=== PATIENT | male | born 1945 | race Caucasian/White ===

== ENCOUNTER 2020-02-17 11:09 | Outpatient (CLI) | payer MEDICARE, BC, SELFPAY ==
[2020-02-17 12:09] LABS: Hematocrit 48.8 % (42.0-52.0); Mean Corpuscular HGB Conc 32.8 g/dl (32-36); Mean Corpuscular Hemoglobin 31.4 pg (26-34); Mean Corpuscular Volume 95.7 fl (80-100); Mean Platelet Volume 10.9 fl (7.4-10.4); Platelet Count Result 201 k/mm3 (150-375); Red Cell Distribution Width 14.6 % (11.5-14.5); White Blood Count 6.6 K/mm3 (4.5-10.0)
[2020-02-17 12:20] LABS: Anion Gap 12.2 mmol/L (7-16); Blood Urea Nitrogen 25 mg/dL (9-20); Calcium 9.5 mg/dL (8.4-10.2); Carbon Dioxide 28 mmol/L (22-30); Chloride 103 mmol/L (98-107); Estimated Glomerular Filt Rate 49; Glucose 126 mg/dL (75-110); Potassium 4.2 mmol/L (3.4-5.0); Sodium 139 mmol/L (137-145)
== END 2020-02-17 11:10 | disposition home or self-care (01) ==
PROVIDERS: PCP Family Medicine; Visit Provider Nurse Practitioner Family
DX: R19.7 Diarrhea, unspecified (principal)
CPT/HCPCS: 36415; 80048; 85027

== ENCOUNTER 2020-08-16 16:21 | Outpatient (CLI) | payer MEDICARE, BC, SELFPAY ==
[2020-08-16 17:17] LABS: Creatinine Urine 48.1 mg/dL
[2020-08-16 17:22] LABS: Microalbumin Urine Random 55.3 mg/L (0-16.7)
== END 2020-08-16 16:22 | disposition home or self-care (01) ==
LOC: ANHLAB 16:25
PROVIDERS: Family Provider Family Medicine; PCP Family Medicine; Visit Provider Internal Medicine Endocrinology, Diabetes & Metabolism
DX: E11.59 Type 2 diabetes mellitus with other circulatory complications (principal); I10 Essential (primary) hypertension
CPT/HCPCS: 82043

== ENCOUNTER 2021-07-29 16:08 | Outpatient (CLI) | payer MEDICARE, BC, SELFPAY ==
[2021-07-29 17:05] LABS: Basophils Percent Auto 0.5 % (0.2-1.2); Eosinophils Absolute Auto 0.1 K/mm3 (0-0.3); Eosinophils Percent Auto 1.7 % (0-4.4); Hematocrit 49.1 % (42.0-52.0); Hemoglobin 16.1 g/dL (14.0-18.0); Immature Granulocyte Absolute 0.03 K/mm3 (0.00-0.031); Immature Granulocyte Percent A 0.4 % (0-0.5); Lymphocytes Percent Auto 11.6 % (18.3-44.2); Mean Corpuscular HGB Conc 32.8 g/dl (32-36); Mean Corpuscular Hemoglobin 31.3 pg (26-34); Mean Corpuscular Volume 95.5 fl (80-100); Mean Platelet Volume 11.3 fl (7.4-10.4); Monocytes Absolute Auto 0.7 K/mm3 (0.1-0.6); Monocytes Percent Auto 9.3 % (2.6-8.5); Neutrophils Absolute Auto 5.9 K/mm3 (1.3-6.7); Neutrophils Percent Auto 76.5 % (45.5-73.1); Platelet Count Result 192 k/mm3 (150-375); Red Blood Count 5.14 M/mm3 (4.6-6.20); Red Cell Distribution Width 14.2 % (11.5-14.5); White Blood Count 7.7 K/mm3 (4.5-10.0)
[2021-07-29 17:18] LABS: Anion Gap 11 mmol/L (8-16); Blood Urea Nitrogen 30 mg/dL (9-20); Calcium 9.4 mg/dL (8.4-10.2); Carbon Dioxide 24 mmol/L (22-30); Chloride 104 mmol/L (98-107); Estimated Glomerular Filt Rate 49; Glucose 143 mg/dL (65-110); Potassium 4.3 mmol/L (3.4-5.0); Sodium 139 mmol/L (137-145)
[2021-07-29 17:25] LABS: NT Pro B Type Natriuretic Pept 1180 pg/mL (5-100)
== END 2021-07-29 16:09 | disposition home or self-care (01) ==
PROVIDERS: PCP Family Medicine
DX: I48.91 Unspecified atrial fibrillation (principal); I44.2 Atrioventricular block, complete; R94.2 Abnormal results of pulmonary function studies; I48.92 Unspecified atrial flutter; I87.2 Venous insufficiency (chronic) (peripheral); R20.0 Anesthesia of skin; I70.213 Atherosclerosis of native arteries of extremities with intermittent claudication, bilateral legs; I49.3 Ventricular premature depolarization; E87.5 Hyperkalemia; I25.5 Ischemic cardiomyopathy; E61.1 Iron deficiency; I47.2 Ventricular tachycardia; R80.9 Proteinuria, unspecified; Z95.1 Presence of aortocoronary bypass graft; I49.01 Ventricular fibrillation; I34.0 Nonrheumatic mitral (valve) insufficiency; Z87.891 Personal history of nicotine dependence; R06.02 Shortness of breath; J44.9 Chronic obstructive pulmonary disease, unspecified; K52.1 Toxic gastroenteritis and colitis; I50.9 Heart failure, unspecified; Z95.810 Presence of automatic (implantable) cardiac defibrillator; G47.33 Obstructive sleep apnea (adult) (pediatric); E66.9 Obesity, unspecified; E78.2 Mixed hyperlipidemia; I10 Essential (primary) hypertension; I25.10 Atherosclerotic heart disease of native coronary artery without angina pectoris
CPT/HCPCS: 36415; 80048; 83880; 85025

== ENCOUNTER 2021-12-27 13:31 | Outpatient (CLI) | payer MEDICARE, BC, SELFPAY ==
[2021-12-27 15:16] LABS: Anion Gap 7 mmol/L (8-16); Blood Urea Nitrogen 30 mg/dL (9-20); Calcium 8.8 mg/dL (8.4-10.2); Carbon Dioxide 29 mmol/L (22-30); Chloride 102 mmol/L (98-107); Estimated Glomerular Filt Rate 45; Glucose 204 mg/dL (65-110); Potassium 4.6 mmol/L (3.4-5.0); Sodium 138 mmol/L (137-145)
[2021-12-27 15:24] LABS: NT Pro B Type Natriuretic Pept 1440 pg/mL (5-100)
== END 2021-12-27 13:32 | disposition home or self-care (01) ==
LOC: ANHLAB 13:38
PROVIDERS: PCP Family Medicine
DX: E87.5 Hyperkalemia (principal); R06.02 Shortness of breath; I50.9 Heart failure, unspecified; I25.10 Atherosclerotic heart disease of native coronary artery without angina pectoris
CPT/HCPCS: 36415; 80048; 83880

== ENCOUNTER 2022-07-24 11:15 | Outpatient (CLI) | payer MEDICARE, BC, SELFPAY ==
[2022-07-24 13:45] LABS: Basophils Percent Auto 0.3 % (0.2-1.2); Eosinophils Absolute Auto 0.1 K/mm3 (0-0.3); Eosinophils Percent Auto 1.6 % (0-4.4); Hematocrit 47.2 % (42.0-52.0); Hemoglobin 15.6 g/dL (14.0-18.0); Immature Granulocyte Absolute 0.03 K/mm3 (0.00-0.031); Immature Granulocyte Percent A 0.4 % (0-0.5); Lymphocytes Absolute Auto 0.91 K/mm3 (0.9-3.2); Lymphocytes Percent Auto 12.3 % (18.3-44.2); Mean Corpuscular HGB Conc 33.1 g/dl (32-36); Mean Corpuscular Hemoglobin 30.9 pg (26-34); Mean Corpuscular Volume 93.5 fl (80-100); Mean Platelet Volume 11.4 fl (7.4-10.4); Monocytes Absolute Auto 0.7 K/mm3 (0.1-0.6); Neutrophils Absolute Auto 5.6 K/mm3 (1.3-6.7); Neutrophils Percent Auto 76.4 % (45.5-73.1); Platelet Count Result 185 k/mm3 (150-375); Red Blood Count 5.05 M/mm3 (4.6-6.20); Red Cell Distribution Width 14.3 % (11.5-14.5); White Blood Count 7.4 K/mm3 (4.5-10.0)
[2022-07-24 13:56] LABS: INR 1.2
[2022-07-24 14:01] LABS: Alanine Aminotransferase 30 U/L (6-50); Albumin Level 4.3 g/dL (3.5-5.1); Alkaline Phosphatase 129 U/L (38-126); Anion Gap 8 mmol/L (8-16); Aspartate Amino Transferase 23 U/L (17-59); Bilirubin,Total 0.8 mg/dL (0.2-1.3); Blood Urea Nitrogen 22 mg/dL (9-20); Calcium 8.7 mg/dL (8.4-10.2); Carbon Dioxide 27 mmol/L (22-30); Chloride 103 mmol/L (98-107); Estimated Glomerular Filt Rate 49; Glucose 177 mg/dL (65-110); Potassium 3.5 mmol/L (3.4-5.0); Sodium 138 mmol/L (137-145)
[2022-07-24 14:05] LABS: Add Urine Microscopic? YES; Appearance Urine Clear (Clear); Bilirubin Urine Negative (Negative); Blood Urine Negative (Negative); Color Urine Yellow (Yellow); Glucose Urine UA 3+ mg/dL (Negative); Ketones Urine Negative (Negative); Leukocyte Esterase Ur Negative LEU/UL (Negative); Nitrate Urine Negative (Negative); Protein Urine Negative (Negative); Specific Grav Ur 1.015 (1.001-1.035)
[2022-07-24 14:25] LABS: WBC Urine 0-3 /hpf
== END 2022-07-24 11:16 | disposition home or self-care (01) ==
PROVIDERS: PCP Family Medicine
DX: I48.92 Unspecified atrial flutter (principal); I49.3 Ventricular premature depolarization; E87.5 Hyperkalemia; I25.5 Ischemic cardiomyopathy; I48.91 Unspecified atrial fibrillation
CPT/HCPCS: 36415; 80053; 81001; 85025; 85610; 85730

== ENCOUNTER 2022-09-05 13:51 | Outpatient (CLI) | payer MEDICARE, BC, SELFPAY ==
[2022-09-05 15:32] LABS: Anion Gap 6 mmol/L (8-16); Blood Urea Nitrogen 24 mg/dL (9-20); Carbon Dioxide 32 mmol/L (22-30); Chloride 103 mmol/L (98-107); Estimated Glomerular Filt Rate 59; Glucose 91 mg/dL (65-110); Potassium 3.5 mmol/L (3.4-5.0); Sodium 141 mmol/L (137-145)
[2022-09-05 15:38] LABS: NT Pro B Type Natriuretic Pept 2720 pg/mL (19.9-100)
== END 2022-09-05 13:52 | disposition home or self-care (01) ==
PROVIDERS: PCP Family Medicine; Visit Provider Internal Medicine Cardiovascular Disease
DX: I48.92 Unspecified atrial flutter (principal); I44.2 Atrioventricular block, complete; R94.2 Abnormal results of pulmonary function studies; I87.2 Venous insufficiency (chronic) (peripheral); R20.0 Anesthesia of skin; I70.213 Atherosclerosis of native arteries of extremities with intermittent claudication, bilateral legs; I49.3 Ventricular premature depolarization; E87.5 Hyperkalemia; I25.5 Ischemic cardiomyopathy; E61.1 Iron deficiency; I47.20 Ventricular tachycardia, unspecified; R80.9 Proteinuria, unspecified; Z95.1 Presence of aortocoronary bypass graft; I49.01 Ventricular fibrillation; I34.0 Nonrheumatic mitral (valve) insufficiency; Z87.891 Personal history of nicotine dependence; R06.02 Shortness of breath; J44.9 Chronic obstructive pulmonary disease, unspecified; I48.91 Unspecified atrial fibrillation; K52.1 Toxic gastroenteritis and colitis; Z95.810 Presence of automatic (implantable) cardiac defibrillator; G47.33 Obstructive sleep apnea (adult) (pediatric); E66.9 Obesity, unspecified; E11.9 Type 2 diabetes mellitus without complications; E78.2 Mixed hyperlipidemia; I10 Essential (primary) hypertension; I25.10 Atherosclerotic heart disease of native coronary artery without angina pectoris
CPT/HCPCS: 36415; 80048; 83880

== ENCOUNTER 2022-11-12 09:28 | Outpatient (CLI) | payer MEDICARE, BC, SELFPAY ==
[2022-11-12 19:30] LABS: Creatinine Urine 106.3 mg/dL
[2022-11-12 19:34] LABS: MALB Creatinine Ratio 126.9 mg/g (0-30); Microalbumin Urine Random 134.9 mg/L (0-16.7)
[2022-11-12 20:42] LABS: Alanine Aminotransferase 40 U/L (6-50); Albumin Level 4.7 g/dL (3.5-5.1); Alkaline Phosphatase 155 U/L (38-126); Anion Gap 15 mmol/L (8-16); Aspartate Amino Transferase 25 U/L (17-59); Bilirubin,Total 0.8 mg/dL (0.2-1.3); Blood Urea Nitrogen 29 mg/dL (9-20); Calcium 9.4 mg/dL (8.4-10.2); Carbon Dioxide 24 mmol/L (22-30); Chloride 106 mmol/L (98-107); Cholesterol 130 mg/dL (0-200); Estimated Glomerular Filt Rate 53; Glucose 188 mg/dL (65-110); HDL Direct 37 mg/dL; Potassium 3.5 mmol/L (3.4-5.0); Sodium 145 mmol/L (137-145); Triglycerides 82 mg/dL (<150)
[2022-11-12 20:53] LABS: LDL Cholesterol Direct 72 mg/dL
== END 2022-11-12 09:29 | disposition home or self-care (01) ==
LOC: ANHGOSHLAB 09:31
PROVIDERS: PCP Family Medicine; Visit Provider Nurse Practitioner Family
DX: E11.65 Type 2 diabetes mellitus with hyperglycemia (principal); E11.59 Type 2 diabetes mellitus with other circulatory complications; I15.2 Hypertension secondary to endocrine disorders; Z79.4 Long term (current) use of insulin; E78.5 Hyperlipidemia, unspecified
CPT/HCPCS: 36415; 80053; 80061; 82043

== ENCOUNTER 2023-08-21 14:48 | Emergency (ER) | payer MEDICARE, BC, SELFPAY ==
--- NOTE | ~2023-08-21 | XR_ITS ---
EXAMINATION: XR chest 2V DATE: 08/21/2023 16:09 INDICATION: Shortness of breath. TECHNIQUE: Frontal and lateral views of the chest were obtained. COMPARISON: Chest single view 05/29/2019 FINDINGS: There is no pneumonia, pleural effusion, or pneumothorax. Cardiomegaly is noted. Median melina rnotomy wires and mediastinal surgical clips are seen, likely from prior coronary artery bypass graft ing. There is a left chest pacer/defibrillator with leads in right atrium and right ventricle. An epi cardial lead is noted. There is mild chronic anterior wedging of multiple vertebral bodies. IMPRESSION: 1. Cardiomegaly. Reviewed, dictated and finalized at location E. ERENCE DIRECTOR IMPRESSION: 1. Cardiomegaly.
[2023-08-21 14:57] VITALS: BP 112/68; PULSE 80; RESP 16; TEMP 36.8; O2SAT 95
--- NOTE | 2023-08-21 15:58 | ED.URI ---
HPI - URI/Sore Throat General Chief Complaint: Upper Respiratory Infection Stated Complaint: Congestion;Short of breath Time Seen by Provider: 08/21/23 15:49 Source: patient, family () and RN notes reviewed Mode of arrival: ambulatory Limitations: no limitations History of Present Illness HPI Narrative: Patient presents today with an 8 day history of cold symptoms to include cough, congestion, shortness of breath. Patient also states that he has gained 3 lb over the last 3 days, that he presumes is fluid. History of CHF, COPD. He has been taking Mucinex and vitamin-C without much relief. He also takes 80 mg of Lasix twice daily for his CHF. Related Data Home Medications Medication Instructions Recorded Confirmed apixaban 2.5 mg tablet (Eliquis) 2.5 mg PO BID 05/29/19 08/21/23 aspirin 81 mg tablet,delayed 81 mg PO DAILY 05/29/19 08/21/23 release (Aspir-) atorvastatin 80 mg tablet 80 mg PO DAILY 05/29/19 08/21/23 carvedilol 12.5 mg tablet 12.5 mg PO BID 05/29/19 08/21/23 clopidogrel 75 mg tablet (Plavix) 75 mg PO DAILY 05/29/19 08/21/23 dapagliflozin propanediol 5 mg 5 mg PO DAILY 05/29/19 08/21/23 tablet (Farxiga) furosemide 40 mg tablet 80 mg PO BID 05/29/19 08/21/23 insulin glargine 100 unit/mL (3 19 unit subcut DAILY 05/29/19 08/21/23 mL) subcutaneous pen (Lantus Solostar U-100 Insulin) ipratropium bromide 17 2 puff inhalation Q8H 05/29/19 08/21/23 mcg/actuation HFA aerosol inhaler (Atrovent HFA) liraglutide 0.6 mg/0.1 mL (18 mg/3 1.8 mg subcut DAILY 05/29/19 08/21/23 mL) subcutaneous pen injector (Victoza 3-Enrique) sacubitril 24 mg-valsartan 26 mg 1 tablet PO BID 05/29/19 08/21/23 tablet (Entresto) spironolactone 25 mg tablet 25 mg PO DAILY 05/29/19 08/21/23 Allergies Allergy/AdvReac Type Severity Reaction Status Date / Time shellfish derived Allergy Intermediate vomitting Verified 08/21/23 15:02 iodine Allergy Unknown Unknown Verified 08/21/23 15:02 Scallop Allergy Mild Unknown Uncoded 08/21/23 15:02 Review of Systems Review of Systems: CONSTITUTIONAL: Denies body aches, fever, chills, or sweats. EYES: Denies visual changes, redness, or discharge. ENT: Denies rhinorrhea, sore throat, or otalgia.+ congestion CARDIOVASCULAR: Denies chest pain, palpitations, or edema. RESPIRATORY:+ cough, shortness of breath GASTROINTESTINAL: Denies abdominal pain, nausea, vomiting, or diarrhea. GENITOURINARY: Denies dysuria or hematuria. SKIN: Denies rash, itching, or wounds. MUSCULOSKELETAL: Denies back pain, joint pain, or myalgia. NEUROLOGIC: Denies headache, numbness, tingling, or weakness. PSYCH: Denies depression or anxiety. [facility] Past Medical History Medical History BMI 33.0-33.9,adult BPH (benign prostatic hyperplasia) CAD (coronary artery disease) Cardiac defibrillator in place CHF (congestive heart failure) COPD (chronic obstructive pulmonary disease) Diabetes mellitus Hemorrhoids HLD (hyperlipidemia) HTN (hypertension) Kidney stones Myocardial infarct Pacemaker Rib fractures Sleep apnea Surgical History Surgical History H/O cardiac catheterization H/O cardiac radiofrequency ablation History of appendectomy History of coronary artery stent placement x4 History of mitral valve repair S/P CABG x 3 Family History Family History Mother Family history of malignant neoplasm Father Family history of diabetes mellitus in first degree relative Family history of coronary artery disease Heart disease Sibling Family history of diabetes mellitus in first degree relative Social History Social History Smoking status: Former smoker Second hand tobacco smoke exposure: Yes Alcohol intake: current Subst
== END 2023-08-21 16:33 | disposition short-term general hospital (02) ==
PROVIDERS: Emergency Provider Nurse Practitioner; PCP Family Medicine
DX: R06.02 Shortness of breath (principal); Z87.891 Personal history of nicotine dependence; N40.0 Benign prostatic hyperplasia without lower urinary tract symptoms; I25.10 Atherosclerotic heart disease of native coronary artery without angina pectoris; I11.0 Hypertensive heart disease with heart failure; I50.9 Heart failure, unspecified; J44.9 Chronic obstructive pulmonary disease, unspecified; E11.9 Type 2 diabetes mellitus without complications; E78.5 Hyperlipidemia, unspecified; I25.2 Old myocardial infarction; Z95.5 Presence of coronary angioplasty implant and graft; Z95.810 Presence of automatic (implantable) cardiac defibrillator
CPT/HCPCS: 71046; 99213; G0463

== ENCOUNTER 2023-08-21 18:23 | Inpatient (IN) | payer MEDICARE, BC, SELFPAY ==
[2023-08-21] VITALS (9 sets, daily range): BP systolic 99–128; BP diastolic 61–79; PULSE 66–84; RESP 17–23; TEMP 36.1–36.9; O2SAT 93–98; BMI 31.1
--- NOTE | 2023-08-21 18:42 | ECG_ITS ---
Measurements Intervals [place] Rate: 75 P: 104 MT: 217 QRS: 152 QRSD: 203 T: 34 QT: 498 QTc: 556 Interpretive Statements ATRIAL SENSE- ELECTRONIC VENTRICULAR PACEMAKER NO FURTHER INTERPRETATION IS POSSIBLE ATYPICAL ECG COMPARED TO ECG 05/29/2019 15:15:26 NO SIGNIFICANT CHANGES Electronically Signed On 08-21-2023 21:13:26 SAP BASIS by Naveed Marinelli D.O.
[2023-08-21 19:05] LABS: Basophils Percent Auto 0.5 % (0.2-1.2); Eosinophils Absolute Auto 0.1 K/mm3 (0-0.3); Hematocrit 47.4 % (42.0-52.0); Immature Granulocyte Absolute 0.01 K/mm3 (0.00-0.031); Immature Granulocyte Percent A 0.2 % (0-0.5); Lymphocytes Absolute Auto 0.98 K/mm3 (0.9-3.2); Lymphocytes Percent Auto 16.4 % (18.3-44.2); Mean Corpuscular HGB Conc 31.6 g/dl (32-36); Mean Corpuscular Hemoglobin 29.8 pg (26-34); Mean Platelet Volume 11.6 fl (7.4-10.4); Monocytes Absolute Auto 0.7 K/mm3 (0.1-0.6); Monocytes Percent Auto 10.9 % (2.6-8.5); Neutrophils Absolute Auto 4.3 K/mm3 (1.3-6.7); Platelet Count Result 145 k/mm3 (150-375); Red Blood Count 5.04 M/mm3 (4.6-6.20); Red Cell Distribution Width 15.6 % (11.5-14.5)
[2023-08-21 19:16] LABS: Alanine Aminotransferase 51 U/L (6-50); Albumin Level 3.8 g/dL (3.5-5.1); Alkaline Phosphatase 147 U/L (38-126); Anion Gap 9 mmol/L (8-16); Aspartate Amino Transferase 41 U/L (17-59); Bilirubin,Total 0.8 mg/dL (0.2-1.3); Blood Urea Nitrogen 35 mg/dL (9-20); Calcium 8.5 mg/dL (8.4-10.2); Carbon Dioxide 26 mmol/L (22-30); Chloride 104 mmol/L (98-107); Estimated CRCL calculation 46 ml/min; Estimated Glomerular Filt Rate 53; Glucose 140 mg/dL (65-110); Potassium 3.3 mmol/L (3.4-5.0); Sodium 139 mmol/L (137-145)
[2023-08-21 19:24] LABS: NT Pro B Type Natriuretic Pept 4430 pg/mL (19.9-100)
[2023-08-21 19:41] LABS: Influenza A QL RT-PCR Positive (Negative); Influenza B QL RT-PCR Negative (Negative); RSV RNA, RT-PCR Negative (Negative); SARS-CoV-2 RNA PCR Negative (Negative)
[2023-08-21 19:54] LABS: Lipase 106 U/L (23-300); Magnesium 2.3 mg/dL (1.6-2.3)
[2023-08-21 20:06] LABS: Partial Thromboplastin Time 39.5 SECONDS (22.3-36.8)
[2023-08-21 20:12] LABS: Procalcitonin 0.1 ng/mL
--- NOTE | 2023-08-21 20:38 | ED.GENADULT ---
HPI - General Adult General Chief complaint: Shortness of Breath/Dyspnea Stated complaint: Shortness of breath Time Seen by Provider: 08/21/23 19:35 History of Present Illness HPI narrative: Patient is a 77-year-old gentleman who presents emergency department with chief complaint of shortness of breath. Patient reports he has been having dyspnea on exertion and reports that he has had increasing peripheral edema reports that he has gained a couple lb of weight over the last several days reports that he has history of congestive heart failure. The patient went to urgent care and was sent to the emergency department for further evaluation. Related Data Home Medications Medication Instructions Recorded Confirmed apixaban 2.5 mg tablet (Eliquis) 2.5 mg PO BID 05/29/19 08/21/23 aspirin 81 mg tablet,delayed 81 mg PO DAILY 05/29/19 08/21/23 release (Aspir-) atorvastatin 80 mg tablet 80 mg PO DAILY 05/29/19 08/21/23 carvedilol 12.5 mg tablet 12.5 mg PO BID 05/29/19 08/21/23 clopidogrel 75 mg tablet (Plavix) 75 mg PO DAILY 05/29/19 08/21/23 dapagliflozin propanediol 5 mg 5 mg PO DAILY 05/29/19 08/21/23 tablet (Farxiga) furosemide 40 mg tablet 80 mg PO BID 05/29/19 08/21/23 insulin glargine 100 unit/mL (3 19 unit subcut DAILY 05/29/19 08/21/23 mL) subcutaneous pen (Lantus Solostar U-100 Insulin) ipratropium bromide 17 2 puff inhalation Q8H 05/29/19 08/21/23 mcg/actuation HFA aerosol inhaler (Atrovent HFA) liraglutide 0.6 mg/0.1 mL (18 mg/3 1.8 mg subcut DAILY 05/29/19 08/21/23 mL) subcutaneous pen injector (Victoza 3-Enrique) sacubitril 24 mg-valsartan 26 mg 1 tablet PO BID 05/29/19 08/21/23 tablet (Entresto) spironolactone 25 mg tablet 25 mg PO DAILY 05/29/19 08/21/23 Allergies Allergy/AdvReac Type Severity Reaction Status Date / Time shellfish derived Allergy Intermediate vomitting Verified 08/21/23 18:24 iodine Allergy Unknown Unknown Verified 08/21/23 18:24 Scallop Allergy Mild Unknown Uncoded 08/21/23 18:24 Review of Systems Review of Systems: A 10 system review of systems was completed on the patient and is negative except for what is stated in the HPI. Nursing and ancillary documentation was reviewed. [facility] Past Medical History Medical History BMI 33.0-33.9,adult BPH (benign prostatic hyperplasia) CAD (coronary artery disease) Cardiac defibrillator in place CHF (congestive heart failure) COPD (chronic obstructive pulmonary disease) Diabetes mellitus Hemorrhoids HLD (hyperlipidemia) HTN (hypertension) Kidney stones Myocardial infarct Pacemaker Rib fractures Sleep apnea Surgical History Surgical History H/O cardiac catheterization H/O cardiac radiofrequency ablation History of appendectomy History of coronary artery stent placement x4 History of mitral valve repair S/P CABG x 3 Family History Family History Mother Family history of malignant neoplasm Father Family history of diabetes mellitus in first degree relative Family history of coronary artery disease Heart disease Sibling Family history of diabetes mellitus in first degree relative Social History Social History Smoking status: Former smoker Second hand tobacco smoke exposure: Yes Alcohol intake: current Substance use: never Substance use type: does not use Living arrangements: with family 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 HEAD: Normocephalic, atraumatic. EYES: PERRLA and EOMI. ENT: Nares clear, no rhinorrhea or epistaxis. M
--- NOTE | 2023-08-21 20:45 | PM.IMHP ---
H&P: HPI History of Present Illness Date/Time: 08/21/23 20:45 Chief Complaint: Shortness of breath and cough Narrative: Patient has history of CHF, for which he uses furosemide at home, triple bypass ICD/pacemaker,, diabetes hypertension. He presented to the ED for evaluation of progressive worsening shortness of breath over 1 week and unintentional weight gain of about 4 lb despite using furosemide as prescribed at home. He denied chest pain, sore throat fever, abdominal pain or abdominal distension. No recent change in diet. He was tachypneic on arrival with respiration in mid 20s, had good oxygen saturation on, with bilateral 2 to 3+ he has pitting leg edema. workup in the ER showed that patient has BNP greater than 4000, mildly elevated troponin, influenza A positive a chest x-ray showing cardiomegaly with no infiltrates or consolidation. Patient was provided with IV furosemide 40 mg once, started nitro paste on Tamiflu. Consult for admission was placed. Patient says he feels a little bit better but still short of breath. Review of Systems Review of Systems: All systems reviewed & are unremarkable except as noted in HPI and below PMFSH Past Medical History Medical History BMI 33.0-33.9,adult BPH (benign prostatic hyperplasia) CAD (coronary artery disease) Cardiac defibrillator in place CHF (congestive heart failure) COPD (chronic obstructive pulmonary disease) Diabetes mellitus Hemorrhoids HLD (hyperlipidemia) HTN (hypertension) Kidney stones Myocardial infarct Pacemaker Rib fractures Sleep apnea Surgical History Surgical History H/O cardiac catheterization H/O cardiac radiofrequency ablation History of appendectomy History of coronary artery stent placement x4 History of mitral valve repair S/P CABG x 3 Family History Family History Mother Family history of malignant neoplasm Father Family history of diabetes mellitus in first degree relative Family history of coronary artery disease Heart disease Sibling Family history of diabetes mellitus in first degree relative Social History Social History Smoking status: Former smoker Second hand tobacco smoke exposure: Yes Alcohol intake: current Substance use: never Substance use type: does not use Living arrangements: with family Occupation/Education: retired 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 Gender identity (if verbalized by the patient): Male Meds Home Medications and Allergies Home Medications Medication Instructions Recorded Confirmed Type apixaban 2.5 mg tablet (Eliquis) 2.5 mg PO BID 05/29/19 08/21/23 History aspirin 81 mg tablet,delayed 81 mg PO DAILY 05/29/19 08/21/23 History release (Aspir-) atorvastatin 80 mg tablet 80 mg PO DAILY 05/29/19 08/21/23 History carvedilol 12.5 mg tablet 12.5 mg PO BID 05/29/19 08/21/23 History clopidogrel 75 mg tablet (Plavix) 75 mg PO DAILY 05/29/19 08/21/23 History dapagliflozin propanediol 5 mg 5 mg PO DAILY 05/29/19 08/21/23 History tablet (Farxiga) furosemide 40 mg tablet 80 mg PO BID 05/29/19 08/21/23 History insulin glargine 100 unit/mL (3 19 unit subcut DAILY 05/29/19 08/21/23 History mL) subcutaneous pen (Lantus Solostar U-100 Insulin) ipratropium bromide 17 2 puff inhalation Q8H 05/29/19 08/21/23 History mcg/actuation HFA aerosol inhaler (Atrovent HFA) liraglutide 0.6 mg/0.1 mL (18 mg/3 1.8 mg subcut DAILY 05/29/19 08/21/23 History mL) subcutaneous pen injector (Victoza 3-Enrique) sacubitril 24 mg-valsartan 26 mg 1 tablet PO BID 05/29/19 08/21/23 History tablet (Entresto) spironolactone 25 mg tablet 25 mg PO DAILY 05/29/19 08/21/23 History dofetilide 250 m
[2023-08-21] MEDS: ASPIRIN 81 MG CHEWABLE TABLET 324 MG PO (20:46)
[2023-08-21] MEDS: FUROSEMIDE INJ 40 MG/4 ML VIAL IV PUSH (20:47)
--- NOTE | 2023-08-21 20:51 | PC.NURSE ---
Per EDP Dr. Sen patient's pressure at 103/74 is too soft for nitro paste. Hold off.
[2023-08-21 21:01] LABS: INR 1.3; Prothrombin Time 16.8 Seconds (11.1-14.7)
[2023-08-21] MEDS: IPRATROPIUM 0.5 MG/ALBUTEROL SULFATE 2.5 MG AMPUL.NEB 3 ML INHALATION (21:07)
[2023-08-21] MEDS: OSELTAMIVIR PHOSPHATE 30 MG CAPSULE PO (21:11)
[2023-08-21] MEDS: guaiFENesin/CODEINE (*CRX) 200/20 MG 10 ML SYRUP PO (21:12)
--- NOTE | 2023-08-21 21:42 | ECG_ITS ---
Measurements Intervals [place] Rate: 65 P: 134 NE: 212 QRS: 159 QRSD: 198 T: -5 QT: 517 QTc: 540 Interpretive Statements ELECTRONIC VENTRICULAR PACEMAKER BASELINE ARTIFACT- I, II, V4-V6 NO FURTHER INTERPRETATION IS POSSIBLE ATYPICAL ECG COMPARED TO ECG 08/21/2023 18:48:49 NO SIGNIFICANT CHANGES Electronically Signed On 08-22-2023 6:34:40 [employer] SUR[employer] by Naveed Marinelli D.O.
--- NOTE | 2023-08-21 22:00 | PC.NURSE ---
This patient, Remberto Cottrell, was admitted to IMU Room 211-01. Patient/family oriented to hospital policies and general routines including ID bracelet, bed and alarms, visiting hours, pain management, procedures, bathroom and other care routines, personal items, smoking policy, room service/diet, and visiting hours. Information on how to activate the Rapid Response Team has been discussed. Patient/Family are encouraged to report perceived risks to care and to ask questions if they do not understand what they are told or what they should do.
[2023-08-21 22:37] LABS: Troponin I 0.043 ng/mL (0.000-0.034)
[2023-08-21] MEDS: POTASSIUM CHLORIDE 20 MEQ ER TABLET 40 MEQ PO (23:14)
[2023-08-22] VITALS (21 sets, daily range): BP systolic 96–122; BP diastolic 65–78; PULSE 63–86; RESP 16–24; TEMP 36.1–36.9; O2SAT 93–97
[2023-08-22 01:57] LABS: Troponin I 0.039 ng/mL (0.000-0.034)
[2023-08-22 04:53] LABS: Basophils Percent Auto 0.6 % (0.2-1.2); Eosinophils Absolute Auto 0.1 K/mm3 (0-0.3); Eosinophils Percent Auto 1.4 % (0-4.4); Hematocrit 45.5 % (42.0-52.0); Hemoglobin 14.8 g/dL (14.0-18.0); Immature Granulocyte Absolute 0.02 K/mm3 (0.00-0.031); Immature Granulocyte Percent A 0.4 % (0-0.5); Lymphocytes Absolute Auto 1.13 K/mm3 (0.9-3.2); Lymphocytes Percent Auto 22.1 % (18.3-44.2); Mean Corpuscular HGB Conc 32.5 g/dl (32-36); Mean Corpuscular Volume 92.3 fl (80-100); Mean Platelet Volume 11.7 fl (7.4-10.4); Monocytes Absolute Auto 0.6 K/mm3 (0.1-0.6); Monocytes Percent Auto 11.7 % (2.6-8.5); Neutrophils Absolute Auto 3.3 K/mm3 (1.3-6.7); Neutrophils Percent Auto 63.8 % (45.5-73.1); Platelet Count Result 152 k/mm3 (150-375); Red Blood Count 4.93 M/mm3 (4.6-6.20); Red Cell Distribution Width 15.6 % (11.5-14.5); White Blood Count 5.1 K/mm3 (4.5-10.0)
[2023-08-22 05:07] LABS: Anion Gap 9 mmol/L (8-16); Blood Urea Nitrogen 31 mg/dL (9-20); Calcium 8.3 mg/dL (8.4-10.2); Carbon Dioxide 27 mmol/L (22-30); Chloride 106 mmol/L (98-107); Estimated CRCL calculation 53 ml/min; Estimated Glomerular Filt Rate > 60; Glucose 58 mg/dL (65-110); Potassium 3.3 mmol/L (3.4-5.0); Sodium 142 mmol/L (137-145)
[2023-08-22 05:50] LABS: Glucose Point of Care 124 mg/dl (65-105)
--- NOTE | 2023-08-22 06:00 | ECHO_ITS ---
Patient Info Name: Remberto Cottrell Age: 77 years : 1945 Gender: Male Ht: 68 in Wt: 208 lbs BSA: 2.16 m2 HR: 68 bpm BP: 112 / 67 mmHg Heart Rhythm: Sinus Rhythm Technical Quality: Poor Exam Date: 08/22/2023 8:23 AM Exam Location: Echo Lab Exam Room: [facility] Patient Status: Inpatient Admit Date: 08/21/2023 Staff Ordering Physician: Stu Sen MD Pilot Plant Operator Helper: Elisa Davis RDCS Attending Provider: Radha Okeefe MD Referring Physician: Mckinley SLAINAS; Exam Type: CA echo dop color flow w con Study Info Indications - CHF EXCERBATION SILVER AICD PPM Complete two-dimensional, color flow and Doppler transthoracic echocardiogram is performed with contrast to opacify the left ventricle and to improve the deliniation of the left ventricle endocardial borders. Contrast/Agitated Saline Contrast/Ag. Saline: Definity Amount: 3.00 ml Administered By: Elisa Davis [facility] Existing IV Access: Yes IV Access Condition: patent with no signs of infiltration Reason for Poor Study: patient body habitus Summary 1. Technically difficult study with limited views. Definity contrast administered. 2. Left ventricular systolic function is severely reduced, estimated at 20-25% with dyskinesis of the apex with relative sparing of the bases. 3. Left ventricular chamber dimension is mildly enlarged. 4. There is no increased left ventricular wall thickness. 5. The left ventricular diastolic function is grade II diastolic dysfunction. 6. There is no thrombus visualized in the left ventricle. 7. There is mild mitral valve regurgitation. 8. There is mild tricuspid valve regurgitation. 9. Moderate pulmonary hypertension, estimated pulmonary arterial systolic pressure is 49 mmHg. Left Ventricle Left ventricular systolic function is severely reduced, estimated at 20-25% with dyskinesis of the apex with relative sparing of the bases. Technically difficult study with limited views. Definity contrast administered. Left ventricular chamber dimension is mildly enlarged. There is no increased left ventricular wall thickness. The left ventricular diastolic function is grade II diastolic dysfunction. There is no thrombus visualized in the left ventricle. Right Ventricle Right ventricular chamber dimension is normal. Right ventricular systolic function is normal. Left Atria Left atrial chamber dimension is moderately enlarged. Right Atria Right atrial chamber dimension is severely enlarged. Aortic Valve The aortic valve is not well visualized. There is mild aortic valve sclerosis. There is no aortic valve stenosis. There is no aortic valve regurgitation. Pulmonic Valve The pulmonic valve is not well visualized. Mitral Valve The mitral valve has thickened leaflets. There is mild mitral valve regurgitation. The mitral valve annulus is severely calcified. Tricuspid Valve The tricuspid valve leaflets are normal. There is mild tricuspid valve regurgitation. Moderate pulmonary hypertension, estimated pulmonary arterial systolic pressure is 49 mmHg. Pericardium/Pleural The pericardium appears normal. There is no pericardial effusion. Inferior Vena Cava Normal inferior vena cava with <50% collapse upon inspiration consistent with elevated right atrial pressure, 10 mmHg. Aorta The aortic root size at the sinus of Valsalva is normal. There is moderate aortic atherosclerosis. Left Ventricular Outflow Tract Name
[2023-08-22 07:55] LABS: Glucose Point of Care 99 mg/dl (65-105)
[2023-08-22] MEDS: PERFLUTREN LIPID MICROSPHERES 1.5 ML VIAL DILUTED TO 10 ML TOTAL VOLUME IV PUSH (08:59)
--- NOTE | 2023-08-22 09:53 | IVDEFINITY ---
Prior to administration of IV Definity the patient was educated on the risks and benefits of the imaging enhancing agent including potential adverse side effects. The patient verbalized understanding. Allergies were verified. No exclusion criteria were identified and at least one of the following inclusion criteria were met: 1) physician request, 2) patient technically difficult to image (per the [place] [employer]chocardi[employer] guidelines of two or more segments not discernable within the apical view), or 3) questionable left ventricular function. ?
--- NOTE | 2023-08-22 10:41 | PM.IMPN ---
Progress Note: A&P Assessment and Plan (1) Acute exacerbation of CHF (congestive heart failure): Code(s): I50.9 - Heart failure, unspecified Status: Acute (2) Elevated troponin I level: Code(s): R79.89 - Other specified abnormal findings of blood chemistry Status: Acute (3) Influenza A: Code(s): J10.1 - Influenza due to other identified influenza virus with other respiratory manifestations Status: Acute (4) COPD (chronic obstructive pulmonary disease): Code(s): J44.9 - Chronic obstructive pulmonary disease, unspecified Status: Acute (5) Diabetes mellitus: Code(s): E11.9 - Type 2 diabetes mellitus without complications Status: Acute (6) HTN (hypertension): Code(s): I10 - Essential (primary) hypertension Status: Acute (7) Sleep apnea: Code(s): G47.30 - Sleep apnea, unspecified Status: Acute (8) CAD (coronary artery disease): Code(s): I25.10 - Atherosclerotic heart disease of [place] coronary artery without angina pectoris Status: Acute Plan Patient still complaining of shortness of breath. He confirms he takes 80 mg of Lasix twice per day at home however he was given 40 mg here. Changing that to 80 mg of IV Lasix b.i.d.. He has acute decompensated heart failure unspecified type although I do not think this is the main culprit for his shortness of breath. He has flu a. He does not require oxygen so he will likely be able to return home in the morning. For now, we will institute daily weights with intake and outtake as well as fluid restriction 2 L per day. Continue heart healthy diet as well. Continue home dosing of Entresto and spironolactone and Jardiance and Coreg As for the flu a we will continue supportive therapy and Tamiflu at 30 mg twice per day. He has some wheezing so we will give a prednisone taper and scheduled DuoNebs. Add guaifenesin since he feels he has some chest congestion. His troponin has peaked and he has no chest pain. As for his AFib, he is currently in a paced rhythm. He is unsure why he takes only 2.5 mg twice per day at home and has never had any bleeding events. He is educated on the risk versus benefit of taking anticoagulation. He is amenable to going to the regular dose of Eliquis at 5 mg twice per day. Continue his home dose of mexiletine As for his diabetes, we will continue his Lantus at night but discontinue his meal dosing as he has had an episode of blood sugar 58. Continue to monitor Accu-Cheks and will adjust based on that. Subjective Date/time seen: 08/22/23 10:41 Interval history: Still feels short of breath. He drinks about 5 bottles of water per day and has taken salt out of his diet. He again reports he gained about 4 lb. He has been having a dry cough but does feel chest congestion. He denies chest pain. He is a prior smoker. He has a history of AFib but does not know why he is on a half dose of Eliquis. Review of Systems Review of Systems: All systems reviewed & are unremarkable except as noted in HPI and below (Subjective) Exam Const: General: comfortable and no acute distress Other: Obese, a and O x3 Eyes: Pupils: Equal, round and reactive pupils present Neck: Neck: supple Resp: Effort & Inspection: normal respiratory effort Auscultation: crackles (Diffusely scant) and wheezes (Mild expiratory) Cardio: Rate: regular rate Rhythm: regular rhythm Heart sounds: no gallops, no murmurs and no rubs GI: GI Palp: Yes Soft to palpation and No Tenderness to palpation present (GI) Extrem: General: edema (Trace) Objective Data Vital Signs Vital Signs: Vital Signs - 24 hr 08/21/23 18:39 08/21/23 19:32 08/21/23 19:33 Temperature 98.4 F Pulse Rate 84 80 Respiratory Rate 20 Blood Pressure 113/79 Pulse Oximetry 94 97 Oxygen Delivery Room Air Room Air 08/21/23 19:33 08/21/23 21:10 08/21/23 21:12 Temperature 98 F Pulse Rate 79 77 R
[2023-08-22] MEDS: POTASSIUM CHLORIDE 20 MEQ ER TABLET PO (10:56)
[2023-08-22] MEDS: EMPAGLIFLOZIN 10 MG TABLET BY MOUTH (10:57)
[2023-08-22] MEDS: ATORVASTATIN 40 MG TABLET 80 MG PO (10:57)
[2023-08-22] MEDS: SPIRONOLACTONE 25 MG TABLET PO (10:57)
[2023-08-22] MEDS: ASPIRIN 81 MG ENTERIC TABLET PO (10:57)
[2023-08-22] MEDS: MEXILETINE HCL 150 MG CAPSULE PO ×3 (10:57→16:40)
[2023-08-22] MEDS: carvediloL 12.5 MG TABLET PO ×2 (10:57→21:02)
[2023-08-22] MEDS: OSELTAMIVIR PHOSPHATE 30 MG CAPSULE PO ×2 (10:57→21:19)
[2023-08-22] MEDS: SACUBITRIL/VALSARTAN 24-26 MG TABLET 1 TAB PO ×2 (10:58→21:02)
[2023-08-22] MEDS: predniSONE 10 MG TABLET 40 MG PO (11:04)
[2023-08-22] MEDS: guaiFENesin 12 HR 600 MG TABCR PO ×2 (11:05→21:02)
[2023-08-22 12:42] LABS: Glucose Point of Care 282 mg/dl (65-105)
[2023-08-22] MEDS: IPRATROPIUM 0.5 MG/ALBUTEROL SULFATE 2.5 MG AMPUL.NEB 3 ML INHALATION ×2 (13:54→20:54)
[2023-08-22 16:06] LABS: Glucose Point of Care 320 mg/dl (65-105)
--- NOTE | 2023-08-22 16:23 | PC.NURSE ---
This patient, Remberto Cottrell, was transferred to [facility] on 08/22/23 at 1623. Personal belongings sent with patient. Report given to Kathy HILTON. Appropriate documentation sent with patient.
[2023-08-22] MEDS: INSULIN GLARGINE (*BKC) 100 UNITS/ML 18 UNITS SUB-Q (16:40)
[2023-08-22] MEDS: FUROSEMIDE INJ 100 MG/10 ML VIAL 80 MG IV PUSH (16:40)
--- NOTE | 2023-08-22 16:58 | ADMGEN ---
This patient, Remberto Cottrell, was admitted to Medical Room 346-01. Patient/family oriented to hospital policies and general routines including ID bracelet, bed and alarms, visiting hours, pain management, procedures, bathroom and other care routines, personal items, smoking policy, room service/diet, and visiting hours. Information on how to activate the Rapid Response Team has been discussed. Patient/Family are encouraged to report perceived risks to care and to ask questions if they do not understand what they are told or what they should do.
[2023-08-22] MEDS: APIXABAN 5 MG TABLET PO (21:02)
[2023-08-22] MEDS: INSULIN ASPART (*BKC) 100 UNITS/ML 10 UNITS SUB-Q (21:02)
[2023-08-22 22:00] LABS: Glucose Point of Care 456 mg/dl (65-105)
[2023-08-23] VITALS (14 sets, daily range): BP systolic 109–110; BP diastolic 64–70; PULSE 60–111; RESP 18; TEMP 35.8–36.3; O2SAT 94–98
[2023-08-23] MEDS: INSULIN ASPART (*BKC) 100 UNITS/ML 8 UNITS SUB-Q (00:22)
--- NOTE | 2023-08-23 02:45 | PCRCNOTE ---
Patient did not want to be awakened for his 0200 updraft treatment.
[2023-08-23 06:21] LABS: Basophils Percent Auto 0.4 % (0.2-1.2); Eosinophils Percent Auto 0.4 % (0-4.4); Hematocrit 47.4 % (42.0-52.0); Hemoglobin 15.7 g/dL (14.0-18.0); Immature Granulocyte Absolute 0.01 K/mm3 (0.00-0.031); Immature Granulocyte Percent A 0.2 % (0-0.5); Lymphocytes Absolute Auto 0.87 K/mm3 (0.9-3.2); Lymphocytes Percent Auto 15.4 % (18.3-44.2); Mean Corpuscular HGB Conc 33.1 g/dl (32-36); Mean Corpuscular Hemoglobin 30.5 pg (26-34); Mean Corpuscular Volume 92.2 fl (80-100); Mean Platelet Volume 11.4 fl (7.4-10.4); Monocytes Absolute Auto 0.6 K/mm3 (0.1-0.6); Neutrophils Absolute Auto 4.1 K/mm3 (1.3-6.7); Neutrophils Percent Auto 72.6 % (45.5-73.1); Platelet Count Result 172 k/mm3 (150-375); Red Blood Count 5.14 M/mm3 (4.6-6.20); Red Cell Distribution Width 15.4 % (11.5-14.5); White Blood Count 5.7 K/mm3 (4.5-10.0)
[2023-08-23 06:29] LABS: Anion Gap 10 mmol/L (8-16); Blood Urea Nitrogen 34 mg/dL (9-20); Calcium 8.7 mg/dL (8.4-10.2); Carbon Dioxide 28 mmol/L (22-30); Chloride 104 mmol/L (98-107); Estimated CRCL calculation 49 ml/min; Estimated Glomerular Filt Rate 58; Glucose 230 mg/dL (65-110); Magnesium 2.8 mg/dL (1.6-2.3); Sodium 142 mmol/L (137-145)
[2023-08-23 07:12] LABS: Glucose Point of Care 421 mg/dl (65-105)
[2023-08-23 08:04] LABS: Glucose Point of Care 216 mg/dl (65-105)
[2023-08-23] MEDS: ATORVASTATIN 40 MG TABLET 80 MG PO (09:12)
[2023-08-23] MEDS: ASPIRIN 81 MG ENTERIC TABLET PO (09:12)
[2023-08-23] MEDS: APIXABAN 5 MG TABLET PO (09:12)
[2023-08-23] MEDS: EMPAGLIFLOZIN 10 MG TABLET BY MOUTH (09:12)
[2023-08-23] MEDS: carvediloL 12.5 MG TABLET PO (09:12)
[2023-08-23] MEDS: guaiFENesin 12 HR 600 MG TABCR PO (09:12)
[2023-08-23] MEDS: SACUBITRIL/VALSARTAN 24-26 MG TABLET 1 TAB PO (09:13)
[2023-08-23] MEDS: SPIRONOLACTONE 25 MG TABLET PO (09:13)
[2023-08-23] MEDS: MEXILETINE HCL 150 MG CAPSULE PO ×2 (09:13→12:12)
[2023-08-23] MEDS: predniSONE 10 MG TABLET 40 MG PO (09:13)
[2023-08-23] MEDS: INSULIN GLARGINE (*BKC) 100 UNITS/ML 18 UNITS SUB-Q (09:16)
[2023-08-23] MEDS: IPRATROPIUM 0.5 MG/ALBUTEROL SULFATE 2.5 MG AMPUL.NEB 3 ML INHALATION ×2 (09:23→13:23)
[2023-08-23] MEDS: OSELTAMIVIR PHOSPHATE 30 MG CAPSULE PO (09:34)
[2023-08-23] MEDS: FUROSEMIDE INJ 100 MG/10 ML VIAL 80 MG IV PUSH (09:34)
[2023-08-23 11:46] LABS: Glucose Point of Care 345 mg/dl (65-105)
[2023-08-23] MEDS: INSULIN ASPART (*BKC) 100 UNITS/ML 15 UNITS SUB-Q (12:13)
[2023-08-23] MEDS: INSULIN ASPART (*BKC) 100 UNITS/ML 10 UNITS SUB-Q (14:31)
[2023-08-23 15:43] LABS: Glucose Point of Care 342 mg/dl (65-105)
[2023-08-23 15:43] LABS: Glucose Point of Care 323 mg/dl (65-105)
--- NOTE | 2023-08-23 15:54 | PM.DS ---
DS: Admitting Diagnosis Discharge Date 08/23 Admitting Diagnosis Shortness of breath DS: Discharge Diagnosis Discharge Diagnosis (1) Acute exacerbation of CHF (congestive heart failure): Code(s): I50.9 - Heart failure, unspecified Status: Acute (2) Elevated troponin I level: Code(s): R79.89 - Other specified abnormal findings of blood chemistry Status: Acute (3) Influenza A: Code(s): J10.1 - Influenza due to other identified influenza virus with other respiratory manifestations Status: Acute (4) CAD (coronary artery disease): Code(s): I25.10 - Atherosclerotic heart disease of [place] coronary artery without angina pectoris Status: Acute (5) COPD (chronic obstructive pulmonary disease): Code(s): J44.9 - Chronic obstructive pulmonary disease, unspecified Status: Acute (6) Diabetes mellitus: Code(s): E11.9 - Type 2 diabetes mellitus without complications Status: Acute (7) HTN (hypertension): Code(s): I10 - Essential (primary) hypertension Status: Acute (8) HLD (hyperlipidemia): Code(s): E78.5 - Hyperlipidemia, unspecified Status: Acute (9) Pacemaker: Code(s): Z95.0 - Presence of cardiac pacemaker Status: Acute (10) Sleep apnea: Code(s): G47.30 - Sleep apnea, unspecified Status: Acute DS: Summary Hospital Course Hospital Course: [age]-year-old male with past medical history of a flutter atrial fibrillation status post ablation, venous insufficiency, PVD, heart failure reduced ejection fraction, CAD status post CABG x3, mitral regurg status post repair, prior smoker, COPD, status post biventricular AICD, insulin-dependent diabetes mellitus, hypertension, hyperlipidemia who presented with shortness of breath. He was treated for influenza a, a mild acute decompensated heart failure and mild COPD exacerbation. On 08/23 he is stable for discharge to home, feeling better and no more shortness of breath. Will be discharged on another 3 days of prednisone 40 mg q.a.m. and Tamiflu 30 mg p.o. b.i.d.. His blood sugars have been running high probably due to the prednisone and he has received extra aspart doses. His blood sugars 300 and the patient refuses sustain longer for additional blood sugar checks/monitoring/insulin administration. His explained the risk including hypoglycemia/hyperglycemia/ if he leaves against the specific advice and he understands and is persistent about leaving. He is otherwise stable. He is to follow within 1 week with his primary care doctor. Patient was full code during his admission Time Spent with Patient Time attestation: Total time spent providing and/or coordinating discharge services: Exam Const: General: comfortable and no acute distress Other: Obese, a and O x3 Eyes: Pupils: Equal, round and reactive pupils present Neck: Neck: supple Resp: Effort & Inspection: normal respiratory effort Auscultation: crackles (Diffusely scant) and wheezes (Mild expiratory) Cardio: Rate: regular rate Rhythm: regular rhythm Heart sounds: no gallops, no murmurs and no rubs GI: GI Palp: Yes Soft to palpation and No Tenderness to palpation present (GI) Extrem: General: edema (Trace) DS: Data Data Completed and Pending Labs on day of discharge: Labs from last 24 hours 08/23/23 08/23/23 08/23/23 15:37 14:19 11:39 WBC RBC Hgb Hct MCV MCH MCHC RDW Plt Count MPV Immature Gran % (Auto) Neut % (Auto) Lymph % (Auto) [place] % (Auto) Eos % (Auto) Baso % (Auto) Lymph # (Auto) [place] # (Auto) Eos # (Auto) Baso # (Auto) Abs Immat Gran (auto) Absolute Neuts (auto) Absolute Nucleated RBC Nucleated RBC % Sodium Potassium Chloride Carbon Dioxide Anion Gap BUN Creatinine Estim Creat Clear Calc Estimated GFR Glucose POC Capillary Glucose 323 H 342 H 345
== END 2023-08-23 16:20 | disposition home or self-care (01) | DRG 193 ==
LOC: ANHED 20:41 → ANHIMU 22:00 → ANH3MED 08-22 16:21
PROVIDERS: Emergency Medicine; Admitting Provider Student in an Organized Health Care Education/Training Program; Emergency Provider Emergency Medicine; PCP Family Medicine; Visit Provider General Practice
DX: J10.1 Influenza due to other identified influenza virus with other respiratory manifestations (principal); I50.23 Acute on chronic systolic (congestive) heart failure; I48.20 Chronic atrial fibrillation, unspecified; J44.1 Chronic obstructive pulmonary disease with (acute) exacerbation; I11.0 Hypertensive heart disease with heart failure; E11.51 Type 2 diabetes mellitus with diabetic peripheral angiopathy without gangrene; I25.10 Atherosclerotic heart disease of native coronary artery without angina pectoris; N40.0 Benign prostatic hyperplasia without lower urinary tract symptoms; R79.89 Other specified abnormal findings of blood chemistry; G47.30 Sleep apnea, unspecified; Z20.822 Contact with and (suspected) exposure to COVID-19; I25.2 Old myocardial infarction; Z87.442 Personal history of urinary calculi; Z95.810 Presence of automatic (implantable) cardiac defibrillator; Z95.5 Presence of coronary angioplasty implant and graft; Z79.01 Long term (current) use of anticoagulants; Z79.02 Long term (current) use of antithrombotics/antiplatelets; Z79.82 Long term (current) use of aspirin; Z79.4 Long term (current) use of insulin; Z87.891 Personal history of nicotine dependence
CPT/HCPCS: 36415; 71046; 80048; 80053; 82948; 83605; 83690; 83735; 83880; 84145; 84484; 85025; 85610; 85730; 87637; 93005; 94640; 96374; 99285; A9270; C8929; G0378; J1815; J1940; J7512; Q9957

== ENCOUNTER 2024-04-28 14:00 | Emergency (ER) | payer MEDICARE, BC, SELFPAY ==
--- NOTE | 2024-04-28 14:07 | ED.GENADULT ---
HPI - General Adult General Chief complaint: Cardiac Arrest/CPR Stated complaint: cardiac arrest History of Present Illness HPI narrative: This is an 78-year-old male with history of CHF/COPD presenting to ED in cardiac arrest. EMS was called by the patient's family at 1:25 p.m.. When EMS arrived patient was found in cardiac arrest. ACLS was started. Patient was in narrow complex PE a arrest. Patient received multiple rounds of epinephrine and eventually converted to wide complex paced rhythm. No ROSC. Per EMS the family states patient is significant weight gain and difficulty breathing over the last week. History of severe CHF. Related Data Home Medications Medication Instructions Recorded Confirmed apixaban 2.5 mg tablet (Eliquis) 2.5 mg PO BID 05/29/19 08/31/23 atorvastatin 80 mg tablet 80 mg PO DAILY 05/29/19 08/31/23 carvedilol 12.5 mg tablet 12.5 mg PO BID 05/29/19 08/31/23 clopidogrel 75 mg tablet (Plavix) 75 mg PO DAILY 05/29/19 08/31/23 dapagliflozin propanediol 5 mg 5 mg PO DAILY 05/29/19 08/31/23 tablet (Farxiga) furosemide 40 mg tablet 80 mg PO BID 05/29/19 08/31/23 insulin glargine 100 unit/mL (3 18 unit subcut BID 05/29/19 08/31/23 mL) subcutaneous pen (Lantus Solostar U-100 Insulin) ipratropium bromide 17 2 puff inhalation Q8H 05/29/19 08/31/23 mcg/actuation HFA aerosol inhaler (Atrovent HFA) liraglutide 0.6 mg/0.1 mL (18 mg/3 1.8 mg subcut HS 05/29/19 08/31/23 mL) subcutaneous pen injector (Victoza 3-Enrique) sacubitril 24 mg-valsartan 26 mg 1 tablet PO BID 05/29/19 08/31/23 tablet (Entresto) spironolactone 25 mg tablet 25 mg PO DAILY 05/29/19 08/31/23 guaifenesin 600 mg tablet, 600 mg PO BID 08/21/23 08/31/23 extended release 12 hr (Mucinex) insulin lispro 100 unit/mL 12 unit subcut QACBREAK 08/21/23 08/31/23 subcutaneous solution (Humalog U-100 Insulin) insulin lispro 100 unit/mL 12 unit subcut QACLUNCH 08/21/23 08/31/23 subcutaneous solution (Humalog U-100 Insulin) insulin lispro 100 unit/mL 16 unit subcut QACDINNER 08/21/23 08/31/23 subcutaneous solution (Humalog U-100 Insulin) Allergies Allergy/AdvReac Type Severity Reaction Status Date / Time shellfish derived Allergy Intermediate Vomiting Verified 08/31/23 16:00 [place] Allergy Mild Unknown Uncoded 08/31/23 16:00 [facility] Past Medical History Medical History BMI 33.0-33.9,adult BPH (benign prostatic hyperplasia) CAD (coronary artery disease) Cardiac defibrillator in place CHF (congestive heart failure) COPD (chronic obstructive pulmonary disease) Diabetes mellitus Hemorrhoids HLD (hyperlipidemia) HTN (hypertension) Kidney stones Myocardial infarct Pacemaker Rib fractures Sleep apnea Surgical History Surgical History H/O cardiac catheterization H/O cardiac radiofrequency ablation History of appendectomy History of coronary artery stent placement x4 History of mitral valve repair S/P CABG x 3 Family History Family History Mother Family history of malignant neoplasm Father Family history of diabetes mellitus in first degree relative Family history of coronary artery disease Heart disease Sibling Family history of diabetes mellitus in first degree relative Social History Social History Smoking packs per day: 3 Smoking cigarettes per day: 60.0 Years smoked: 35 Smoking pack-years: 105.00 Smoking status: Former smoker Tobacco type: cigarettes Second hand tobacco smoke exposure: Yes Alcohol intake: current Drinks per week: 1 Substance use: never Substance use type: does not use Do You Feel Safe in your Home?: Yes Lack of Transportation: No Lack of Food: Never True Current Housing: I Have Housing Concerned About
== END 2024-04-28 16:10 | disposition expired ==
PROVIDERS: Emergency Provider Emergency Medicine; PCP Family Medicine
DX: I46.9 Cardiac arrest, cause unspecified (principal); I50.9 Heart failure, unspecified; I11.0 Hypertensive heart disease with heart failure; I25.10 Atherosclerotic heart disease of native coronary artery without angina pectoris; I25.2 Old myocardial infarction; J44.9 Chronic obstructive pulmonary disease, unspecified; E11.9 Type 2 diabetes mellitus without complications; E78.5 Hyperlipidemia, unspecified; N40.0 Benign prostatic hyperplasia without lower urinary tract symptoms; G47.30 Sleep apnea, unspecified; Z95.0 Presence of cardiac pacemaker; Z95.5 Presence of coronary angioplasty implant and graft; Z95.1 Presence of aortocoronary bypass graft; Z87.442 Personal history of urinary calculi; Z87.891 Personal history of nicotine dependence; Z79.4 Long term (current) use of insulin; Z79.85 Long-term (current) use of injectable non-insulin antidiabetic drugs; Z79.01 Long term (current) use of anticoagulants; Z79.899 Other long term (current) drug therapy; Z79.02 Long term (current) use of antithrombotics/antiplatelets
CPT/HCPCS: 92950; 99285